=== PATIENT | female | born 1950 | race American Indian/Alaskan Native ===

== ENCOUNTER 2020-04-05 19:22 | Emergency (ER) | payer SELFPAY ==
--- NOTE | 2020-04-05 20:40 | Emergency Department Report ---
ED Psych HPI - General Chief Complaint: Medical Clearance Stated Complaint: MH EVAL/CLEARANCE Time Seen by Provider: 04/05/20 19:46 Source: patient, EMS Mode of arrival: Ambulatory - History of Present Illness Initial Comments: Patient is a 69-year-old F [place] female who is presenting with need of a mental health evaluation. Patient states she has been incarcerated since 3. She states she got into an argument with someone at the care home and was put into the mental health unit. Patient was released today and was brought to the emergency department for evaluation. Patient states that she is not having any mental health issues at this time. Patient states she is not homicidal suicidal hearing voices or responding to any external stimuli. Patient states she does not know why that she was sent here to the emergency department for psych evaluation. - Related Data Allergies Allergy/AdvReac Type Severity Reaction Status Date / Time No Known Allergies Allergy Unverified 04/05/20 20:21 ED Review of Systems ROS: Stated complaint: MH EVAL/CLEARANCE Other details as noted in HPI Comment: All other systems reviewed and negative ED Past Medical Hx - Past Medical History Hx Psychiatric Treatment: Yes (unsure of diagnosis) - Surgical History Past Surgical History?: No - Social History Smoking Status: Unknown if ever smoked ED Physical Exam - General Limitations: No Limitations General appearance: alert, in no apparent distress - Head Head exam: Present: atraumatic, normocephalic - Eye Eye exam: Present: normal appearance, PERRL, EOMI - ENT ENT exam: Present: mucous membranes moist - Neck Neck exam: Present: normal inspection - Respiratory Respiratory exam: Present: normal lung sounds bilaterally. Absent: respiratory distress, wheezes, rales, rhonchi - Cardiovascular Cardiovascular Exam: Present: regular rate, normal rhythm, normal heart sounds. Absent: systolic murmur, diastolic murmur, rubs, gallop - GI/Abdominal GI/Abdominal exam: Present: soft, normal bowel sounds. Absent: distended, tenderness, guarding, rebound - Extremities Exam Extremities exam: Present: normal inspection - Back Exam Back exam: Present: normal inspection - Neurological Exam Neurological exam: Present: alert, oriented X3 - Psychiatric Psychiatric exam: Present: normal affect, normal mood - Skin Skin exam: Present: warm, dry, intact, normal color. Absent: rash ED Medical Decision Making - Medical Decision Making Patient does not appear to be in any acute crises as far as mental health yany rns. Patient be discharged. Attempted to get in touch with the patient's son to pick her up Critical care attestation.: If time is entered above; I have spent that time in minutes in the direct care of this critically ill patient, excluding procedure time. ED Disposition Clinical Impression: Encounter for psychiatric assessment Disposition: MED SCREENING EXAM-LEFT Is pt being admited?: No Does the pt Need Aspirin: No Condition: Stable Referrals: JADE CASTILLO MD [Primary Care Provider] - 3-5 Days Time of Disposition: 20:44
[2020-04-05 21:12] VITALS: BP 101/55
== END 2020-04-05 21:11 | disposition left against medical advice (07) ==
LOC: ED 19:22
DX: Z00.8 Encounter for other general examination (principal)
CPT/HCPCS: 99283